=== PATIENT | female | born 1990 | race African-American/Black ===

== ENCOUNTER 2016-10-16 13:23 | Emergency (ER) | payer OTHER ==
[~2016-10-16] VITALS: Ht 160 cm; Wt 89.2 kg
[~2016-10-16 13:23] MED LIST: FLEXERIL10 MG PO; IBUPROFEN800 MG; MOTRIN800 MG PO; NAPROSYN500 MG PO; NOHOMEMEDS; PEN-VEE K,VEET500 MG PO; PRENATAL1 EACH PO; ULTRACET1 TABLET PO; ULTRAM50 MG PO; VALIUM5 MG PO
[2016-10-16 14:13] LABS: HEMATOCRIT 41.5 % (36.0-46.0); MCH 28.5 PG (29.0-34.0); MCV 86.3 FL (83-99); MEAN PLAT.VOLUME 11.9 uM^3 (9.5-12.4); PLATELET COUNT 161 K/uL (156-360); RBC DIS.WIDTH-CV 14.1 % (11.8-14.6); RBC DIS.WIDTH-SD 43.6 % (39-53); RED BLOOD COUNT 4.81 M/uL (3.80-5.20); WHITE BLOOD COUNT 3.9 K/uL (4.1-10.2)
[2016-10-16 14:22] LABS: CHLORIDE 110 mEq/L (99-109); POTASSIUM 3.7 mEq/L (3.7-5.4); SODIUM 143 mEq/L (136-147)
[2016-10-16 14:23] LABS: GLUCOSE 112 mg/dL (70-99)
[2016-10-16 14:25] LABS: ANION GAP 13 MEQ/L (2-14)
[2016-10-16 14:27] LABS: GFR ESTIMATE (CALCULATED) > 59 mL/min/
[2016-10-16 14:28] LABS: UREA NITROGEN (BUN) 6 mg/dL (9-23)
[2016-10-16 14:34] LABS: TROP-I INTERPRETATION NEGATIVE; TROPONIN-I < 0.01 ng/mL (0.0-0.30)
[2016-10-16 18:49] LABS: ADD MIUA? YES; BILIRUBIN NEGATIVE; BLOOD NEGATIVE; COLOR YELLOW ((YELLOW)); GLUCOSE (STRIP) NEGATIVE; KETONES NEGATIVE; LEUKOCYTES TRACE; NITRITE NEGATIVE; PH, URINE 7.5 (5-8); PROTEIN (STRIP) NEGATIVE; SPECIFIC GRAVITY 1.003 (1.000-1.030); UROBILINOGEN 0.2 MG/DL (0.2-1.0)
[2016-10-16 19:32] LABS: EPITHELIAL CELLS 2+; MUCUS TRACE; RED BLOOD CELLS RARE /HPF (0-5); WHITE BLOOD CELLS RARE /HPF (0-5)
[2016-10-16 19:33] LABS: BACTERIA 1+; CASTS NONE SEEN /LPF; CRYSTALS NONE SEEN
[2016-10-16 19:46] LABS: TROP-I INTERPRETATION NEGATIVE; TROPONIN-I 0.02 ng/mL (0.0-0.30)
[2016-10-16] MEDS ORDERED: ULTRAM50 MG PO (20:19)
[2016-10-16 20:55] VITALS: BP 136/84
== END 2016-10-16 20:59 | disposition home or self-care (01) ==
LOC: EME 13:23
PROVIDERS: Emergency Medicine
DX: R07.89 Other chest pain (principal); M54.5 Low back pain; G89.29 Other chronic pain; F17.200 Nicotine dependence, unspecified, uncomplicated
CPT/HCPCS: 71020; 71275; 80048; 81003; 84484; 85027; 93005; 99281; 99285; J2270; J2405; J7030

== ENCOUNTER 2016-11-26 03:14 | Emergency (ER) | payer OTHER ==
[~2016-11-26] VITALS: Ht 162.6 cm; Wt 86.0 kg
[2016-11-26 05:02] VITALS: BP 140/100
== END 2016-11-26 05:03 | disposition home or self-care (01) ==
LOC: EME 03:14
DX: S61.012D Laceration without foreign body of left thumb without damage to nail, subsequent encounter (principal); W45.8XXD Other foreign body or object entering through skin, subsequent encounter; Z48.02 Encounter for removal of sutures; F17.200 Nicotine dependence, unspecified, uncomplicated
CPT/HCPCS: 99281; 99284

== ENCOUNTER 2017-01-22 22:56 | Emergency (ER) | payer OTHER ==
[~2017-01-22] VITALS: Ht 162.6 cm; Wt 86.3 kg
[2017-01-22] MEDS ORDERED: NORCO 5/3251 TABLET PO (23:55)
[2017-01-22] MEDS ORDERED: PEN-VEE K,VEET500 MG PO (23:55)
[2017-01-23 00:08] VITALS: BP 113/74
== END 2017-01-23 00:25 | disposition home or self-care (01) ==
LOC: EME 22:56
DX: K02.9 Dental caries, unspecified (principal); F17.200 Nicotine dependence, unspecified, uncomplicated
CPT/HCPCS: 99281; 99284